=== PATIENT | female | born 1975 | race Caucasian/White ===

== ENCOUNTER → 2020-09-14 | Outpatient (CLI) | payer OTHER ==
[~2020-09-14] MED LIST: KEFLEX500 M1 PO; NORCO 5-325 TA1 EACH PO; PERCOCET 5-3251 EACH PO; PHENERGAN 25 MG25 M1 PO; TRINATE TABLET1 TAB PO; TYLENOL325 MG PO
== END ==
LOC: RAD 10:03 → ULTRA 10:03
PROVIDERS: ATTEND Specialist
DX: N60.02 Solitary cyst of left breast (principal); N60.01 Solitary cyst of right breast; R92.2 Inconclusive mammogram

== ENCOUNTER → 2020-09-14 | Outpatient (CLI) | payer BC, OTHER | LOC: RAD 10:45 | PROVIDERS: ATTEND Specialist | DX: Z12.31 Encounter for screening mammogram for malignant neoplasm of breast (principal) ==